=== PATIENT | female | born 1950 | race Caucasian/White ===

== ENCOUNTER → 2019-03-08 | Outpatient (CLI) | payer OTHER, MEDICAID ==
--- NOTE | 2019-03-08 16:12 | NUR ---
I have reviewed the documentation by BONG ZARAGOZA from TODAY to 03/08/19 and I concur with it. FRANCESCA ANGULO
== END ==
LOC: M.RAD 10:58
DX: R13.10 Dysphagia, unspecified (principal)

== ENCOUNTER 2020-07-10 13:30 | Inpatient (IN) | payer MEDICARE, MEDICAID ==
[~2020-07-10] VITALS: Ht 170.2 cm; Wt 80.7 kg
[2020-07-10] MEDS ORDERED: D3-501250 MCG PO (13:45)
[2020-07-10] MEDS ORDERED: CARVEDILOL12.5 MG PO (13:45)
[2020-07-10] MEDS ORDERED: ACID CONTROLLER20 MG PO (13:46)
[2020-07-10] MEDS ORDERED: SENNA S TABLET1 EACH PO (13:46)
[2020-07-10] MEDS ORDERED: LEXAPRO 10 MG T10 M2 PO (13:46)
[2020-07-10] MEDS ORDERED: PROBIOTIC1 EAC4 PO (13:46)
[2020-07-10] MEDS ORDERED: MIRTAZAPINE7.5 MG PO (13:46)
[2020-07-10] MEDS ORDERED: GAS RELIEF80 MG PO (13:47)
[2020-07-10] MEDS ORDERED: ZOCOR20 MG PO (13:47)
[2020-07-10] MEDS ORDERED: TRAMADOL 50 MG50 MG PO (13:48)
[2020-07-10] MEDS ORDERED: BOUDREAUXS10 GM TP (13:49)
[2020-07-10] MEDS ORDERED: LANTUSSOLASTAR SUBQ (13:50)
[2020-07-10] MEDS ORDERED: HUMALOG100 UNIT/1 SUBQ (13:50)
[2020-07-10 13:52] VITALS: BP 131/56
[2020-07-10 14:21] LABS: ABSOLUTE BASOPHILS 0.1 thou/uL (0.0-0.2); ABSOLUTE EOSINOPHILS 0.1 thou/uL (0.0-0.7); ABSOLUTE LYMPHOCYTES 1.2 thou/uL (0.8-5.3); ABSOLUTE MONOCYTES 0.6 thou/uL (0.0-1.2); ABSOLUTE NEUTROPHILS 5.9 thou/uL (1.6-8.1); BASOPHILS 1.2 %; EOSINOPHILS 1.3 %; HEMOGLOBIN 13.2 gm/dL (12.0-15.0); LYMPHOCYTES 15.7 %; MCH 26.6 pg (26.0-34.0); MCHC 31.4 g/dL (28.0-37.0); MCV 84.8 fL (80.0-100.0); MONOCYTES 7.7 %; MPV 9.3 fl. (7.2-11.1); NUCLEATED RBCS 0 /100WBC; PLATELET COUNT* 143 thou/uL (150-400); POLYS 74.1 %; RBC 4.95 mil/uL (4.20-5.00); RDW-CV 16.4 % (10.5-14.5); WBC 7.9 thou/uL (4.0-11.0)
[2020-07-10 14:38] LABS: CREATININE 2.6 mg/dL (0.6-1.3); POTASSIUM 4.4 mmol/L (3.5-5.1)
[2020-07-10 14:42] LABS: APTT 21.3 Seconds (25.0-31.3); PROTIME 10.5 Seconds (9.20-11.50)
[2020-07-10 14:49] LABS: ALBUMIN 2.4 g/dL (3.4-5.0); TOTAL BILIRUBIN 0.5 mg/dL (<0.1-1.0); TOTAL PROTEIN 6.6 g/dL (6.4-8.2)
[2020-07-10 15:17] LABS: URINE BLOOD 1+ (Negative); URINE CLARITY CLEAR; URINE COLOR YELLOW; URINE GLUCOSE-RANDOM TRACE (Negative); URINE KETONES NEGATIVE (Negative); URINE LEUKOCYTES-REFLEX 1+ (Negative); URINE NITRITE-REFLEX NEGATIVE (Negative); URINE PROTEIN 3+ (Negative); URINE SPECIFIC GRAVITY >= 1.030 (1.005-1.030); URINE UROBILINOGEN 0.2 E.U./dl (0.2-1.0)
[2020-07-10 15:27] LABS: URINE BILIRUBIN 1+ (Negative)
[2020-07-10 15:31] LABS: ICTOTEST (BILI CONFIRMATORY) Negative (Negative)
[2020-07-10 15:35] LABS: SQUAMOUS 4-10 Moderate /LPF (0-3); URINE RBC 3-10 Few /HPF (0-2)
[2020-07-10 15:36] LABS: AMORPHOUS URATES Many /LPF (None Seen); BACTERIA-REFLEX >30 Many /HPF (None Seen); HYALINE CASTS 0-3 Few /LPF (None Seen); YEAST-REFLEX Present (None Seen)
--- NOTE | 2020-07-10 16:14 | EKG ---
[place] [address] ELECTROCARDIOGRAM REPORT Name: SHERLYN SKINNER Room: [place] [address] ADM IN M.R.#: [id number] Admission: 07/10/20 Attend Phys: Nahun Renner, Discharge: Date of : 54 Date of Service: 07/10/20 1340 Report #: [id number] THIS REPORT FOR: //name// [facility] ED Test Date: 2020-07-10 Test Time: 13:40:45 Pat Name: SHERLYN SKINNER Department: Room: [facility] Gender: F Track Inspecting Supervisor: JOHNATHAN : 1950 Requested By: Dane Farias Order Number: [id number] MD: Charles Ruiz Measurements Intervals [place] Rate: 87 P: 81 ID: [id number] QRS: 76 QRSD: 93 T: 241 QT: 384 QTc: 462 Interpretive Statements Sinus rhythm Borderline repolarization abnormality No previous ECG available for comparison Electronically Signed On 07-10-2020 16:13:56 TRANSMISSION AND COORDINATION ENGINEER by Charles Ruiz [email or web address] <ELECTRONICALLY SIGNED> By: Charles Ruiz MD, [facility] 07/10/20 1613 134 39 Charles Ruiz MD, FACC /EPI
[2020-07-10 20:40] VITALS: BP 152/52
[2020-07-10 23:44] VITALS: BP 142/60
[2020-07-11] VITALS: BP 124/45
[2020-07-11 04:38] VITALS: BP 133/57
--- NOTE | 2020-07-11 07:56 | NUR ---
RECIEVED PT FROM ED AT APPROX 2350. PT IS AWAKE, ORIENTED TO SELF ONLY. PT IS NOT IN DISTRESS. PT IS TRACING SR ON THE VIDEO PRODUCER. ADMISSION ASSESSMENT DONE AND CHARTED. NOTED MULTIPLE WOUNDS, PICTURES TAKEN AND ATTACHED TO CHART. WOUND CARE IS CONSULTED. PT REMAINED INCONTINENT, PT IS REPOSITIONED Q2H. PT IS KEPT CLEAN AND DRY. NO ACUTE CHANGES THROUGHOUT THIS SHIFT. PT IS CLOSELY MONITORED. HIGH FALL PRECAUTIONS IN PLACE.
[2020-07-11 08:00] VITALS: BP 164/53
[2020-07-11 10:54] LABS: CALCIUM 8.9 mg/dL (8.5-10.1); CREATININE 2.3 mg/dL (0.6-1.3); MAGNESIUM 2.5 mg/dL (1.8-2.4); POTASSIUM 4.2 mmol/L (3.5-5.1)
[2020-07-11 12:26] VITALS: BP 143/51
--- NOTE | 2020-07-11 13:19 | NUR ---
CM spoke with Susannah at [facility]. Pt is a LTC resident there, currently being skilled post previous hospital stay at [facility], Pt was covid positive at that time. Staff use a lift for transfers, Pt uses a wc for mobility, Pt is total care. Pt is normally able to communicate, but sometimes she can be difficult to understand. Pt is dehydrated, wound care to see. Per nurse, Pt's friend, wants Pt to be moved to [facility], so that the can walk to see her. CM to discuss with friend, Anila Carpenter [phone]. CM attempted to speak with , is apparently MR and has difficulty communicating what he is trying to say. [facility] can accept Pt back [place]. [facility] [phone]
[2020-07-11 15:20] LABS: CALCIUM 9.4 mg/dL (8.5-10.1); CREATININE 2.2 mg/dL (0.6-1.3); POTASSIUM 3.8 mmol/L (3.5-5.1)
[2020-07-11 17:30] VITALS: BP 137/66
--- NOTE | 2020-07-11 18:45 | NUR ---
PT RESTING IN BED THROUGHOUT SHIFT. REPOSITIONED FREQUENTLY. INCONTINENT OF URINE, PERICARE FREQUENTLY. PT FED MEALS-POOR APPETITE. IVF INFUSING. PT ABLE TO ANSWER SIMPLE QUESTIONS. SPOKE TO AND HIS ADVOCATE TODAY TO UPDATE ON PT STATUS.
[2020-07-11 20:00] VITALS: BP 116/60
[2020-07-11 21:02] LABS: CALCIUM 8.3 mg/dL (8.5-10.1); CREATININE 2.1 mg/dL (0.6-1.3); POTASSIUM 3.9 mmol/L (3.5-5.1)
[2020-07-12] VITALS: BP 117/45
[2020-07-12 04:26] LABS: HEMATOCRIT 36.3 % (37.0-47.0); HEMOGLOBIN 11.6 gm/dL (12.0-15.0); MCHC 31.9 g/dL (28.0-37.0); MCV 84.5 fL (80.0-100.0); MPV 10.4 fl. (7.2-11.1); RBC 4.3 mil/uL (4.20-5.00); RDW-CV 16.1 % (10.5-14.5); WBC 4.6 thou/uL (4.0-11.0)
--- NOTE | 2020-07-12 04:58 | NUR ---
ASSUMED PT CARE AT APPROX 1930. PT IS LETHARGIC BUT AROUSABLE WHEN NAME IS CALLED REPEATEDLY. PT IS ABLE TO ANSWER SIMPLE QUESTIONS BUT GOES TIGHT BACK TO SLEEP. POC GLUCOSE IS 47- D50 IV GIVEN PER OCT, REPEAT BLOOD GLUCOSE IS 188. POSITION CHANGES DONE AND PT IS KEPT CLEAN AND DRY. CALL LIGHT WITHIN REACH. HOURLY ROUNDING DONE FOR PT SAFETY.HIGH FALL PRECAUTIONS IN PLACE.
[2020-07-12 05:06] LABS: CALCIUM 8.2 mg/dL (8.5-10.1); CREATININE 2.1 mg/dL (0.6-1.3); MAGNESIUM 2.4 mg/dL (1.8-2.4); POTASSIUM 3.8 mmol/L (3.5-5.1)
[2020-07-12 08:00] VITALS: BP 149/62
--- NOTE | 2020-07-12 14:06 | NUR ---
CM spoke with Pt, and 's advocate at bedside. CM to attempt to complete a DPOA with Pt. CM contacted [facility], they do not have any LTC beds available at this time, CM to update 's advocate. Pt is M/s status. Updated Susannah at [facility], anticipate dc back to [facility] LT in 1-2 days.
[2020-07-12 17:09] VITALS: BP 146/48
[2020-07-12 20:00] VITALS: BP 122/42
--- NOTE | 2020-07-12 20:04 | NUR ---
RECEIVED REPORT. ASSUMED CARE OF PT AROUND 0730. AM ASSESSMENT AND VITALS COMPLETED CHARTED. M/S STATUS. MEDS PER EMAR. NECATR THICK AND PUREE DIET. MEDS WITH APPLESAUCE. TURNS Q2HRS AND PRN. UP TO BEDSIDE CHAIR WITH CAROL BELLE AND P.T. THIS AM. DRESSING IN PLACE TO SACRUM WOUND, CDI. PT WITH VERY POOR APPETITE. PT ABLE TO ANSWER SOME SIMPLE QUESTIONS. AND HIS CAREGIVER VISITED TODAY. PLAN IS FOR PT TO RETURN TO [facility] PT. UA SENT DOWN. PT CURRENTLY RESTING IN BED. CALL LIGHT IS WITHIN REACH,. HOURLY ROUNDING PERFORMED. FALL PRECAUTIONS IN PLACE.
[2020-07-12 20:17] LABS: URINE BILIRUBIN NEGATIVE (Negative); URINE BLOOD 1+ (Negative); URINE CLARITY CLEAR; URINE COLOR YELLOW; URINE GLUCOSE-RANDOM NEGATIVE (Negative); URINE KETONES NEGATIVE (Negative); URINE LEUKOCYTES 1+ (Negative); URINE NITRITE NEGATIVE (Negative); URINE PROTEIN 2+ (Negative); URINE SPECIFIC GRAVITY 1.025 (1.005-1.030); URINE UROBILINOGEN 0.2 E.U./dl (0.2-1.0)
[2020-07-12 20:33] LABS: BACTERIA >30 Many /HPF (None Seen); SQUAMOUS 4-10 Moderate /LPF (0-3)
[2020-07-12 20:34] LABS: HYALINE CASTS 0-3 Few /LPF (None Seen); URINE WBC 6-15 Few /HPF (0-5); YEAST Present (None Seen)
[2020-07-12 20:35] LABS: CRYSTALS None Seen /LPF (None Seen); MUCUS None Seen strn/LPF (None Seen); URINE RBC 3-10 Few /HPF (0-2)
[2020-07-13] VITALS: BP 114/39; BP 145/62
--- NOTE | 2020-07-13 05:14 | NUR ---
ASSUMED PT CARE AT APPROX 1930. PT IS AWAKE, ORIENTED TO SELF, ANSWERS SIMPLE QUESTIONS WITH YES/NO. PT IS NOT IN DISTRESS, NO DESATURATIONS NOTED ON 2L OF O2/NC. PT IS REPOSITIONED Q2H AND NEEDED. NO ACUTE CHANGES THIS SHIFT. CALL LIGHT WITHIN REACH. HOURLY ROUNDING DONE FOR PT SAFETY.
[2020-07-13 08:00] VITALS: BP 139/59
--- NOTE | 2020-07-13 11:19 | NUR ---
CM completed DPOA with Pt today, appointing and 's advocate, Anila, faxed copy to [facility]. and Anila in room, faxed LTC referrals to [facility], family prefers that Pt not return to [facility], awaiting decisions to accept. Anticipate dc next week.
--- NOTE | 2020-07-13 13:37 | NUR ---
RECIEVED O.T. ORDERS. AFTER CHART REVIEW, PT. IS DEPENDENT FOR TRANSFERS VIA A LIFT AND FOR ADLS RECIEVING TOTAL CARE PER CASE MANAGEMENT NOTES. WILL DISMISS PT. FROM O.T. [facility] DUE TO PT. APPEARS TO BE AT HER BASELINE AT THIS TIME.
[2020-07-13 14:00] LABS: ABSOLUTE EOSINOPHILS 0.1 thou/uL (0.0-0.7); ABSOLUTE LYMPHOCYTES 0.8 thou/uL (0.8-5.3); ABSOLUTE MONOCYTES 0.3 thou/uL (0.0-1.2); BASOPHILS 0.6 %; EOSINOPHILS 2.4 %; HEMATOCRIT 33.6 % (37.0-47.0); HEMOGLOBIN 10.8 gm/dL (12.0-15.0); LYMPHOCYTES 25.1 %; MCH 27.1 pg (26.0-34.0); MCV 84.7 fL (80.0-100.0); MONOCYTES 8.2 %; MPV 10.9 fl. (7.2-11.1); NUCLEATED RBCS 0 /100WBC; PLATELET COUNT* 75 thou/uL (150-400); POLYS 63.7 %; RBC 3.97 mil/uL (4.20-5.00); RDW-CV 16.1 % (10.5-14.5); WBC 3.1 thou/uL (4.0-11.0)
[2020-07-13 14:01] LABS: CALCIUM 8.1 mg/dL (8.5-10.1); CREATININE 2.1 mg/dL (0.6-1.3)
--- NOTE | 2020-07-13 15:52 | NUR ---
WOUND NURSE: PATIENT SEEN PERTAINING TO INTEGUMENTARY ASSESSMENT REGARDING SMALL STABLE BLACKENED ESCHAR ON THE RIGHT DISTAL GREAT TOE. PATIENT HAS A SCAR ON THE RIGHT AND LEFT HEEL AND ON HER SACRAL AREA. RECOMMEND USE OF HEEL MEDIX BOOTS LEAVE RIGHT GREAT TOE OPEN TO AIR. PATIENT IS NOT TEACHEABLE.
[2020-07-13 17:05] VITALS: BP 150/56
--- NOTE | 2020-07-13 18:50 | NUR ---
RECEIVED REPORT. ASSUMED CARE OF PT AROUND 0730. PT AWAKE, ALERT, ORIENTED TO SELF. AM ASSESSMENT AND VITALS COMPLETED CHARTED. MEDS PER EMAR. M/S STATUS. PT SEEN BY NORBERTO CARROLL - MOST WOUNDS PICTURED IN CHART DEEMD HEALED, JUST SCARRING. WOUND TO RIGHT GREAT TOE TO BE LEFT OPEN TO AIR. HEEL BOOTS IN PLACE. VYAS PLACED AFTER PT FOUND TO HAVE 780 IN HER BLADDER DURING BLADDER SCAN. PT ALSO INCONTINENT OF BM THIS EVENING,PT CLEANED AND LINENS CHANGED. IV FLUIDS INFUSING. AND HIS CAREGIVER IN TO SEE PT THIS AM. ISOLATION MAINTAINED FOR VRE IN THE URINE. PT CURRENTLY RESTING IN BED. CALL LIGHT IS WITHIN REACH. HOURLY ROUNDING PERFORMED. FALL PRECAUTIONS IN PLACE.
[2020-07-13 21:00] VITALS: BP 152/60
[2020-07-14] VITALS: BP 150/43
[2020-07-14 04:00] VITALS: BP 159/73
[2020-07-14 08:00] VITALS: BP 158/68
[2020-07-14 16:49] LABS: HEMATOCRIT 32.6 % (37.0-47.0); HEMOGLOBIN 10.4 gm/dL (12.0-15.0); MCH 27.1 pg (26.0-34.0); MCHC 31.8 g/dL (28.0-37.0); MCV 85.2 fL (80.0-100.0); MPV 10.8 fl. (7.2-11.1); NUCLEATED RBCS 0 /100WBC; PLATELET COUNT* 66 thou/uL (150-400); RBC 3.82 mil/uL (4.20-5.00); RDW-CV 16.1 % (10.5-14.5); WBC 3.4 thou/uL (4.0-11.0)
[2020-07-14 16:59] LABS: ALBUMIN 1.8 g/dL (3.4-5.0); CALCIUM 8.1 mg/dL (8.5-10.1); CREATININE 1.6 mg/dL (0.6-1.3); POTASSIUM 4.6 mmol/L (3.5-5.1); TOTAL BILIRUBIN 0.2 mg/dL (<0.1-1.0); TOTAL PROTEIN 4.6 g/dL (6.4-8.2)
[2020-07-14 17:23] LABS: ABSOLUTE MONOCYTES 0.2 thou/uL (0.0-1.2); ABSOLUTE NEUTROPHILS 2.2 thou/uL (1.6-8.1)
[2020-07-14 17:24] LABS: ANISOCYTOSIS 1+; OVALOCYTES Occasional; PLATELET ESTIMATE DECREASED
[2020-07-14 20:30] VITALS: BP 140/60
[2020-07-15 00:10] VITALS: BP 107/50
[2020-07-15 04:00] VITALS: BP 160/72
--- NOTE | 2020-07-15 07:18 | NUR ---
Oriented x 1-2 and nonverbal. She does say yes or no. She has O2 at 2L n/c. She takes meds crushed in pudding. She is turned every 2 hours,skin is intact. good urine output per burton. She has slept.
[2020-07-15 08:00] VITALS: BP 161/63
[2020-07-15 16:38] VITALS: BP 146/49
--- NOTE | 2020-07-15 18:56 | NUR ---
RECIEVED REPORT. ASSUMED CARE OF PT AROUND 0730. AM ASSESSMENT AND VITALS COMPLETED CHARTED. MES PER EMAR. PT M/S STATUS. TWO NEW IV'S PLACED. PT ASSISTED WITH MEALS, APPETITE POOR. CALORIE COUNT ON THE DOOR. AND POLINA IN TO SEE PT THIS AFTERNOON. THIRD SPACE EDEMA NOTED TO BUE THAT WORSENED THROUGHOUT THE SHIFT. ARMS ELEVATED ON PILLOWS PT WOULD ALLOW. DENIED PAIN THIS SHIFT. VYAS IN PLACE TO DD. 2L PER NC MAINTAINED. CONCERNED ABOUT ASPIRATION - WILL HAVE SPEECH RECONSULT PT TOMORROW, PERHAPS VIDEO SWALLOW CAN BE DONE. DR AWARE. IVF INFUSING. PT REPOSITIONED Q2HRS. SMALL BM THIS EVENING, INCONTINENT. PT CLEANED AND PAD CHANGED. PT CURRENTLY RESTING IN BED. CALL LIGHT IS WITHIN REACH. HORULY ROUNDING PERFORMED. FALL PRECAUTIONS IN PLACE.
[2020-07-15 21:03] VITALS: BP 151/61
[2020-07-16] VITALS: BP 120/36
[2020-07-16 04:12] LABS: HEMATOCRIT 31.7 % (37.0-47.0); HEMOGLOBIN 10.3 gm/dL (12.0-15.0); MCH 27.4 pg (26.0-34.0); MCHC 32.6 g/dL (28.0-37.0); MCV 84.2 fL (80.0-100.0); MPV 10.7 fl. (7.2-11.1); RBC 3.76 mil/uL (4.20-5.00)
[2020-07-16 04:37] LABS: ALBUMIN 1.7 g/dL (3.4-5.0); CALCIUM 7.9 mg/dL (8.5-10.1); CREATININE 1.7 mg/dL (0.6-1.3); MAGNESIUM 1.9 mg/dL (1.8-2.4); POTASSIUM 4.6 mmol/L (3.5-5.1); TOTAL BILIRUBIN 0.2 mg/dL (<0.1-1.0); TOTAL PROTEIN 4.4 g/dL (6.4-8.2)
[2020-07-16 08:00] VITALS: BP 153/63
--- NOTE | 2020-07-16 08:51 | NUR ---
PT IS ABLE TO COMMUNICATE HER NEEDS TO STAFF WITH SOME DIFFICULTY; SHE HAS COGNITIVE DELAY AND IS CONFUSED AT TIMES WELL BEING A+OX1-2 AT BEST. SHE HAS DENIED THE NEED FOR PAIN MEDICATION UP TILL 0700 TODAY. VYAS IS PATENT UP TILL 0700 TODAY. CONTACT ISOLATION MAINTIANED FOR VRE IN URINE.
--- NOTE | 2020-07-16 12:39 | NUR ---
[facility] able to accept Pt for LTC, waiting on a copy of Pt's [id number] to be sent to them from [facility]. Anticipate dc tomorrow. CM updated [facility] that Pt may need IVABX at dc, awaiting final recs, CM to fax. Pt to have a swallow study today. Pt will need a repeat covid test at dc.
[2020-07-16 19:05] VITALS: BP 128/54
--- NOTE | 2020-07-16 19:31 | NUR ---
PT. ALERT, TURN Q2H, NO PAIN OR DISCOMFORT ASSESSED, CALORIE CONT, VYAS PATENT, PT. BATHED IN BED AND GROOMED, IV INFUSING, NO COMPLICATIONS. CALL LIGHT AND PERSONAL BELONGINGS PLACED WITHIN REACH. REPORT GIVEN TO EMMIE CARROLL, AND PT BEING TRANSFERED TO ROOM 304. IN STABLE CONDITION, AT THIS TIME.
[2020-07-16 19:40] VITALS: BP 151/63
--- NOTE | 2020-07-16 19:40 | NUR ---
PT TRANSFERRED TO FLOOR PER BED BY 2W STAFF WITH BELONGINGS. ORIENTED TO ROOM AND CALL LITE, ALERT ORIENTED TO PERSON AND SITUATION. DENIES NEEDS AT PRESENT. O2 2L NC SAT 96%. IVF INFUSING PER PUMP. VYAS DRAINING YELLOW URINE. REPOSITIONED AND MADE COMFORTABLE. CALL LITE IN EASY REACH, BED ALARM ON FOR SAFETY.
--- NOTE | 2020-07-17 05:33 | NUR ---
PT HAS SLEPT WELL WITHOUT COMPLAINTS. RFA IVF INFUSING PER PUMP, IVPB GIVEN ORDERED. INCONTINENT SMALL BM OVERNIGHT, SARITA CARE GIVEN. O2 2L NC. HS ACCUCHECK 146, INSULIN GIVEN ORDERED. AM LABS DRAWN, TO HAVE VANC TROUGH 1930 TODAY. TAKES MEDS CRUSHED IN PUDDING WITH NECTAR THICK LIQUIDS. SOFT FOAM BOOTS TO BLE. WOUNDS CHARTED, GRABIEL. BOTTOM RED, BARREIR CREAM APPLIED, PT TURNED AND REPOSITIONED Q2 HOURS AND PRN FOR SKIN CARE AND COMFORT. AO TO SELF AND SITUATION. VYAS DRAINING YELLOW URINE.
[2020-07-17 07:30] VITALS: BP 175/57
--- NOTE | 2020-07-17 09:26 | NUR ---
WOUND NURSE: PATIENT SEEN FOR FOLLOW UP ASSESSMENT PERTAINING TO RIGHT DISTAL GREAT TOE WHICH CONTAINS STABLE BLACKENED ESCHAR. CONTINUES TO USE HEELMEDIX BOOTS FOR HEEL OFFLOAD. CONT TO RECOMMEND RIGHT GREAT TOE OPEN TO AIR.
--- NOTE | 2020-07-17 12:25 | NUR ---
[facility] CALLED AND SAID THEY CAN ACCEPT PT. TODAY. THEY RECEIVED [id number] FROM [facility] WHERE SHE LIV[facility]. PT.TO GO BY AMBULANCE. FAXED FORM TO [facility]. RN TO NOTIFY TO INFORM AND DO DISCHARGE ORDERS.
[2020-07-17] MEDS ORDERED: ZYVOX600 MG PO (12:54)
[2020-07-17] MEDS ORDERED: CIPRO250 M2 PO (12:55)
--- NOTE | 2020-07-17 14:30 | NUR ---
FAXED DISCHARGE SUMMARY AND ORDERS TO [facility] [phone]. PT.TO HAVE SWALLOW EVAL PRIOR TO DISCHARGE.
--- NOTE | 2020-07-17 15:45 | NUR ---
AMBULANCE ARRANGED FOR 4PM. SWALLOW EVAL REPORT SENT IN CHART PACKET. NURSING TO CALL REPORT [phone]. NOTIFIED HUSBANDS CAREGIVER,POLINA, TIME OF DISCHARGE.
--- NOTE | 2020-07-17 15:52 | NUR ---
AMBULANCE ARRANGED FOR 4:00 PM. WILIAM PATEL. NOTIFIED PTS OF DISCHARE TIME. ATTEMPTED TO CALL POLINA,PTS CAREGIVER ALSO BUT NO ANSWER. CHART COPIED TO GO WITH PT. NURSING TO CALL REPORT.
--- NOTE | 2020-07-17 16:52 | NUR ---
Pt remained Alert and Oriented x2 for the entire shift. Pt was pleasant with staff. Vital signs remained stable for entire shift. Pt's and mobile security specialist came for a short visit this morning. Pt on puree/nectar diet and does not want to eat more than a few bites at a time. Pt discharged to [facility] around 1615.
[2020-07-17 18:14] VITALS: BP 175/57
--- NOTE | 2020-07-18 12:08 | NUR ---
NURSING REPORTED THEY TRIED CALLING REPORT TO [facility] 4 DIFFERENT TIMES, AFTER DISCHARGE, YESTERDAY WITH NO ANSWER EACH TIME. CM NOTIFIED [facility] [phone]. SHE SAID SHE WOULD REPORT IT TO THE DIRCTOR OF NURSING AT [facility].
== END 2020-07-17 16:15 | DRG 177 ==
LOC: M.ERS 13:30 → M.2W 15:31 → M.TBA-ER 15:31 → M.2W 23:50 → M.3W 07-16 19:59
PROVIDERS: Family Medicine; Internal Medicine; ADMIT Internal Medicine; ATTEND Internal Medicine
DX: J15.6 Pneumonia due to other Gram-negative bacteria (principal); N17.0 Acute kidney failure with tubular necrosis; G92 Toxic encephalopathy; E43 Unspecified severe protein-calorie malnutrition; R53.2 Functional quadriplegia; E87.0 Hyperosmolality and hypernatremia; Z16.22 Resistance to vancomycin related antibiotics; E86.0 Dehydration; G89.29 Other chronic pain; E11.40 Type 2 diabetes mellitus with diabetic neuropathy, unspecified; K21.9 Gastro-esophageal reflux disease without esophagitis; B96.89 Other specified bacterial agents as the cause of diseases classified elsewhere; I10 Essential (primary) hypertension; N30.91 Cystitis, unspecified with hematuria; R53.81 Other malaise; E78.5 Hyperlipidemia, unspecified; S91.301A Unspecified open wound, right foot, initial encounter; X58.XXXA Exposure to other specified factors, initial encounter; Y93.89 Activity, other specified; Y92.89 Other specified places as the place of occurrence of the external cause; Y99.8 Other external cause status; Z79.4 Long term (current) use of insulin; Z79.899 Other long term (current) drug therapy; Z88.8 Allergy status to other drugs, medicaments and biological substances; Z86.19 Personal history of other infectious and parasitic diseases; Z09 Encounter for follow-up examination after completed treatment for conditions other than malignant neoplasm